=== PATIENT | male | born 1960 | race Caucasian/White ===

== ENCOUNTER 2016-11-05 12:04 | Observation (INO) | payer BC ==
[~2016-11-05] VITALS: Ht 170.2 cm; Wt 108.4 kg
[2016-11-05] MEDS ORDERED: OPTIRAY 350 100 ML VIAL HMH IV ONE (12:05)
[2016-11-05] MEDS ORDERED: MORPHINE 4 MG/ML SYR ONE ×2 (13:34→18:19)
[2016-11-05] MEDS ORDERED: SODIUM CHLORIDE 0.9% 1,000 ML ONE ×3 (13:34→18:19)
[2016-11-05] MEDS ORDERED: ONDANSETRON 4 MG VIAL ONE ×2 (13:34→17:04)
[2016-11-05] MEDS ORDERED: ASPIRIN 81 MG CHEW TAB ONE (15:35)
[2016-11-05] MEDS ORDERED: PROMETHAZINE 25 MG/ML VIAL ONE (18:18)
[2016-11-05] MEDS ORDERED: SODIUM CHLORIDE 0.9% 50 ML IV ONE (18:22)
[2016-11-05] MEDS ORDERED: BISACODYL 10 MG SUPP RECTAL PRN (18:45)
[2016-11-05] MEDS ORDERED: PROMETHAZINE 25 MG/ML VIAL IV PRN (18:45)
[2016-11-05] MEDS ORDERED: BISACODYL EC 5 MG TAB PO PRN (18:45)
[2016-11-05] MEDS ORDERED: SALINE FLUSH 10 ML FLUSH PRN (18:45)
[2016-11-05] MEDS ORDERED: ALU/MAG/SIM 30 ML UDC PO PRN (18:45)
[2016-11-05] MEDS ORDERED: MAG HYDROX 30 ML UDC PO PRN (18:45)
[2016-11-05 19:57] VITALS: RESP 20; TEMP 98.4
[2016-11-05 21:16] VITALS: BP_SYST 130
[2016-11-05 21:18] VITALS: Ht 170.2 cm; Wt 108.4 kg
[2016-11-05] MEDS: MAGNESIUM SULF 1 GM/100 ML 100 ML IV SCH ×2 (21:29→22:49)
[2016-11-05] MEDS: SODIUM CHLORIDE 0.9% 1,000 ML IV SCH (21:29)
[2016-11-05] MEDS: SALINE FLUSH 10 ML FLUSH SCH (21:30)
[2016-11-05 23:19] VITALS: BP_SYST 109; TEMP 98.4
[2016-11-05 23:20] VITALS: RESP 20
[2016-11-06] MEDS: MAGNESIUM SULF 1 GM/100 ML 100 ML IV SCH ×2 (00:21→02:04)
[2016-11-06] MEDS ORDERED: ACETAMINOPHEN 500 MG TAB PO ONE (00:35)
[2016-11-06 04:25] VITALS: BP_SYST 133; RESP 16; TEMP 98.2
[2016-11-06] MEDS ORDERED: SODIUM CHLORIDE 0.9% FLUSH BAG 500 ML IV SCH (06:00)
[2016-11-06 07:37] VITALS: BP_SYST 136; RESP 20; TEMP 98.8
[2016-11-06] MEDS: SALINE FLUSH 10 ML FLUSH SCH (07:40)
[2016-11-06] MEDS ORDERED: ACETAMINOPHEN 325 MG TAB PO PRN (10:10)
[2016-11-06 11:06] VITALS: BP_SYST 131; RESP 20; TEMP 99.4
[2016-11-06] MEDS: SODIUM CHLORIDE 0.9% 1,000 ML IV SCH (11:22)
[2016-11-06 15:46] VITALS: BP_SYST 131; RESP 20; TEMP 99.1
[2016-11-06 17:05] VITALS: BP_SYST 131; RESP 20; TEMP 99.1
== END 2016-11-06 18:05 | disposition home or self-care (01) ==
LOC: ENRESERVTM → ENRESERVDT → ER 12:04 → EMR 18:18 → ENPENDDIS 18:18 → 3NT 20:00
PROVIDERS: ADMIT Internal Medicine; ATTEND Internal Medicine
DX: A08.4 Viral intestinal infection, unspecified (principal); R07.89 Other chest pain; E83.42 Hypomagnesemia; E86.0 Dehydration; R91.1 Solitary pulmonary nodule; K76.0 Fatty (change of) liver, not elsewhere classified; Z79.82 Long term (current) use of aspirin; Z79.899 Other long term (current) drug therapy; G47.33 Obstructive sleep apnea (adult) (pediatric); I10 Essential (primary) hypertension; K57.90 Diverticulosis of intestine, part unspecified, without perforation or abscess without bleeding
CPT/HCPCS: 36415; 71010; 74177; 80048; 80053; 81003; 82550; 83605; 83690; 83735; 84484; 85025; 85610; 85730; 87804; 93005; 93306; 94799; 96361; 96365; 96366; 96374; 96375; 96376; 99217; 99219